=== PATIENT | female | born 1985 | race African-American/Black ===

== ENCOUNTER 2017-12-04 10:24 | Emergency (ER) | payer MEDICAID ==
[~2017-12-04] VITALS: Ht 154.9 cm; Wt 72.6 kg
[~2017-12-04 10:24] MED LIST: [UNRECOGNIZED DRUG - OTHER]
--- NOTE | 2017-12-04 10:45 | NUR ---
PRESENTS TO ER C/O ABD PAIN W/ N/V/D X 4 DAYS, NO EPISODE OF DIARRHEA TODAY. PATIENT IS A/OX 4. BREATHING EVEN AND UNLABORED. NO SOB, NAD, VITALS STABLE. SAFETY AND COMFORT MEASURES IN PLACE. AWAITING MD ORDERS.
--- NOTE | 2017-12-04 11:25 | NUR ---
NEW IV STARTED ON LAC, 20G, BLOOD DRAWN AND SENT TO LAB.
[2017-12-04 11:39] LABS: APPEARANCE,URINE Slightly Cloudy (CLEAR); BILIRUBIN,URINE Negative (NEGATIVE); BLOOD, URINE Trace-intact Ery/uL (NEGATIVE); COLOR,URINE Yellow (YELLOW); KETONES,URINE Trace (NEGATIVE); LEUKOCYTE ESTERASE ,URINE Trace (NEGATIVE); NITRITE, URINE Negative (NEGATIVE); PH,URINE 5.5 (5.0-8.0); PROTEIN,URINE Negative (NEGATIVE); UGLUCOSE Negative (NEGATIVE); UROBILINOGEN,URINE 0.2 EU/dL (0.2)
[2017-12-04] MEDS ORDERED: ONDANSETRON HCL/PF 4 MG/2 ML VIAL ONE (11:39)
[2017-12-04] MEDS ORDERED: FAMOTIDINE/PF INJ 20 MG/2 ML VIAL IV ONE ×2 (11:39→12:00)
[2017-12-04 11:45] LABS: BACTERIA,URINE Moderate /HPF (None Seen); RBC,URINE 0-2 /HPF (0-2); SQUAMOUS EPITHELIAL CELL,UR Many /HPF (None Seen)
[2017-12-04 11:49] LABS: BASOPHILS % (AUTO) 0.6 % (0.0-2.0); EOSINOPHILS % (AUTO) 2.2 % (0.0-6.0); HEMATOCRIT 43 % (33-45); HEMOGLOBIN 14.3 g/dL (11.5-14.8); LYMPHOCYTES # (AUTO) 3.6 /CMM (0.8-4.8); LYMPHOCYTES % (AUTO) 44.3 % (20.0-44.0); MEAN CORPUSCULAR HGB CONC 34 g/dl (31.0-36.0); MEAN CORPUSCULAR VOLUME 80 fL (82-100); MONOCYTES # (AUTO) 0.5 /CMM (0.1-1.30); MONOCYTES % (AUTO) 5.5 % (2.0-12.0); NEUTROPHILS # (AUTO) 3.9 /CMM (1.8-8.9); NEUTROPHILS % (AUTO) 47.4 % (43.0-81.0); PLATELET COUNT (AUTO) 266 /CMM (150-450); RDW COEFFICIENT OF VARIATION 12.1 (11.5-15.0); RED BLOOD CELL COUNT(AUTO) 5.36 MIL/uL (4.0-5.2); WHITE BLOOD COUNT (AUTO) 8.2 K/uL (4.3-11.0)
[2017-12-04 11:57] LABS: CALCIUM, SERUM 9.3 mg/dL (8.5-10.1); CREATININE 0.8 mg/dL (0.6-1.3); POTASSIUM 3.9 mmol/L (3.5-5.1)
[2017-12-04] MEDS ORDERED: IV NS 0.9% 1,000 ML BAG IV ONE (12:00)
[2017-12-04] MEDS ORDERED: ONDANSETRON HCL/PF - ER 4 MG/2 ML VIAL IV ONE (12:00)
[2017-12-04 12:03] LABS: ALBUMIN 3.6 g/dL (3.4-5.0); BILIRUBIN,DIRECT 0.2 mg/dL (0.0-0.2); BILIRUBIN,TOTAL 0.8 mg/dL (0.2-1.0); TOTAL PROTEIN, SERUM 7.9 g/dL (6.4-8.2)
--- NOTE | 2017-12-04 12:25 | NUR ---
WATER AND CRACKERS GIVEN TO PT FOR PO CHALLENGE PER MD ORDERS.
[2017-12-04 12:40] VITALS: BP 139/82
--- NOTE | 2017-12-04 12:50 | NUR ---
IV removed. Catheter intact and site benign. Pressure and 4x4 applied to site. No bleeding noted.Patient discharged to home in stable condition. Written and verbal after care instructions given. Patient verbalizes understanding of instruction.
== END 2017-12-04 12:52 | disposition home or self-care (01) ==
LOC: ER 10:27
DX: R11.2 Nausea with vomiting, unspecified (principal); F41.9 Anxiety disorder, unspecified; J45.909 Unspecified asthma, uncomplicated; G89.29 Other chronic pain; K21.9 Gastro-esophageal reflux disease without esophagitis; Z87.19 Personal history of other diseases of the digestive system; Z90.49 Acquired absence of other specified parts of digestive tract
CPT/HCPCS: 80048; 80076; 81001; 83690; 84703; 85025; 87086; 96361; 96374; 96375; 99284; A4606; J2405 ×2; J3490; J7030; Z7610; 36415; 81000-TC

== ENCOUNTER 2017-12-20 21:07 | Emergency (ER) | payer MEDICAID ==
[~2017-12-20] VITALS: Ht 154.9 cm; Wt 86.2 kg
[2017-12-20 22:19] VITALS: BP 140/86
== END 2017-12-20 23:12 | disposition home or self-care (01) ==
LOC: ER 21:19
DX: M25.551 Pain in right hip (principal); M79.671 Pain in right foot; G89.29 Other chronic pain; K21.9 Gastro-esophageal reflux disease without esophagitis; J45.909 Unspecified asthma, uncomplicated; Z90.89 Acquired absence of other organs; Z90.49 Acquired absence of other specified parts of digestive tract
CPT/HCPCS: 99282; A4606; Z7610

== ENCOUNTER 2018-03-06 11:10 | Emergency (ER) | payer MEDICAID, OTHER ==
[~2018-03-06] VITALS: Ht 154.9 cm; Wt 74.8 kg
[2018-03-06 11:10] VITALS: BP 120/86
--- NOTE | 2018-03-06 11:40 | NUR ---
BENADRYL 25MG AND PEPCID 20MG PO WERE GIVEN.
[2018-03-06] MEDS ORDERED: diphenhydrAMINE HCL 25 MG CAPSULE ONE (11:58)
[2018-03-06] MEDS ORDERED: FAMOTIDINE (20 MG) 20 MG TABLET ONE (11:58)
[2018-03-06] MEDS ORDERED: DIPHENHYDRAMINE HCL 12.5 MG/5 ML UDC PO ONE (12:00)
[2018-03-06] MEDS ORDERED: FAMOTIDINE (20 MG) 20 MG TABLET PO ONE (12:00)
== END 2018-03-06 12:12 | disposition home or self-care (01) ==
LOC: ER 11:11
DX: S60.562A Insect bite (nonvenomous) of left hand, initial encounter (principal); J45.909 Unspecified asthma, uncomplicated; K21.9 Gastro-esophageal reflux disease without esophagitis; G89.29 Other chronic pain; F41.9 Anxiety disorder, unspecified; Z90.49 Acquired absence of other specified parts of digestive tract; W57.XXXA Bitten or stung by nonvenomous insect and other nonvenomous arthropods, initial encounter; Y93.89 Activity, other specified; Y92.89 Other specified places as the place of occurrence of the external cause; Y99.8 Other external cause status
CPT/HCPCS: A4606; Q0163; Z7610

== ENCOUNTER 2019-04-27 07:35 | Emergency (ER) | payer SELFPAY ==
[~2019-04-27] VITALS: Ht 154.9 cm; Wt 86.2 kg
[2019-04-27 07:39] VITALS: BP 134/101
[2019-04-27] MEDS ORDERED: predniSONE 20 MG TABLET ONE (07:51)
[2019-04-27] MEDS ORDERED: IPRATROPIUM NEB FS 0.5 MG/2.5 ML AMPUL.NEB ONE ×2 (07:56→08:37)
[2019-04-27] MEDS ORDERED: ALBUTEROL FS 2.5 MG/3 ML VIAL.NEB ONE ×2 (07:56→08:37)
[2019-04-27] MEDS ORDERED: ALBUTEROL FS 2.5 MG/3 ML VIAL.NEB NEB ONE ×2 (08:00→08:30)
[2019-04-27] MEDS ORDERED: predniSONE 20 MG TABLET PO ONE (08:00)
[2019-04-27] MEDS ORDERED: IPRATROPIUM NEB FS 0.5 MG/2.5 ML AMPUL.NEB NEB ONE ×2 (08:00→08:30)
== END 2019-04-27 09:32 | disposition home or self-care (01) ==
LOC: ER 07:37
DX: J45.901 Unspecified asthma with (acute) exacerbation (principal); K21.9 Gastro-esophageal reflux disease without esophagitis; G89.29 Other chronic pain; F41.9 Anxiety disorder, unspecified; Z98.890 Other specified postprocedural states; Z90.49 Acquired absence of other specified parts of digestive tract
CPT/HCPCS: 93005; 94640 ×2; 99284; J7512

== ENCOUNTER 2019-06-25 05:59 | Emergency (ER) | payer MEDICAID ==
[~2019-06-25] VITALS: Ht 154.9 cm; Wt 81.6 kg
[2019-06-25] MEDS ORDERED: KETOROLAC TROMETHAMINE 15 MG/ML VIAL ONE (06:27)
[2019-06-25] MEDS ORDERED: ONDANSETRON HCL/PF 4 MG/2 ML VIAL ONE (06:28)
[2019-06-25] MEDS ORDERED: IV NS 0.9% 1,000 ML BAG IV ONE ×2 (06:30→08:00)
[2019-06-25] MEDS ORDERED: KETOROLAC TROMETHAMINE INJ 30 MG/ML VIAL IV ONE (06:30)
[2019-06-25] MEDS ORDERED: ONDANSETRON HCL/PF 4 MG/2 ML VIAL IVP ONE (06:30)
--- NOTE | 2019-06-25 06:48 | NUR ---
CLINTSELVinayak FROM WORK. TO ER BED 9. AAOX4. NO RESP DISTRESS NOTED, BREATHING EVEN AND UNLABORED. AMBULATORY. C/O FLU LIKE SYMPTOMS SINCE SUNDAY. PT REPORTS SHE FEELS WEAK, NAUSEOUS AND VOMMITED SEVERAL TIMES. PT STATES THAT SHE FEEL DEHAYDRATED. PT REPORTS COUGH, NOTED NON PRODUCTIVE COUGH. PT IS AFEBRILE. MD AT BEDSIDE FOR EVAL. ORDERS RECEIVED NIOTED AND CARIIRED OUT. IV LINE OBTAINED ON L HAND 20G.
--- NOTE | 2019-06-25 07:23 | NUR ---
RECEIVED REPORT FROM CRYSTAL ARZOLA FOR YANG, PT IS AAOX4, NOT IN RESPIRATORY DISTRESS, V/S STABLE, KEPT RESTE AND COMFORTABLE, WILL CONTINUE TO MONITOR.
--- NOTE | 2019-06-25 07:27 | NUR ---
PT ENDORSED TO CRYSTAL OVALLE FOR YANG.
[2019-06-25] MEDS ORDERED: DICYCLOMINE HCL 10 MG CAPSULE PO ONE ×2 (08:00)
[2019-06-25 08:56] VITALS: BP 148/82
--- NOTE | 2019-06-25 08:57 | NUR ---
IV removed. Catheter intact and site benign. Pressure and 4x4 applied to site. No bleeding noted. Patient discharged to home in stable condition. Written and verbal after care instructions given. Patient verbalizes understanding of instruction.
== END 2019-06-25 08:57 | disposition home or self-care (01) ==
LOC: ER 06:03
DX: B34.9 Viral infection, unspecified (principal); J45.909 Unspecified asthma, uncomplicated; R19.7 Diarrhea, unspecified; K21.9 Gastro-esophageal reflux disease without esophagitis; F41.9 Anxiety disorder, unspecified; G89.29 Other chronic pain; Z90.49 Acquired absence of other specified parts of digestive tract; Z98.890 Other specified postprocedural states; Z88.5 Allergy status to narcotic agent; Z88.6 Allergy status to analgesic agent
CPT/HCPCS: 84703; 96361; 96374; 96375; 99283; J1885; J2405; J7030 ×2

== ENCOUNTER 2019-07-28 11:42 | Emergency (ER) | payer MEDICAID, OTHER ==
[~2019-07-28] VITALS: Ht 154.9 cm; Wt 86.2 kg
--- NOTE | 2019-07-28 11:51 | NUR ---
PT CAME INTO THE ED C/O R SHOULDER PAIN 06/26 X 5 DAYS. PT AAOX4, VSS, BREATHING EVEN AND UNLABORED ON ROOM AIR. PT CONNECTED TO THE MONITOR.
--- NOTE | 2019-07-28 12:14 | NUR ---
XRAY AT BEDSIDE
[2019-07-28 12:36] VITALS: BP 127/84
== END 2019-07-28 12:37 | disposition home or self-care (01) ==
LOC: ER 11:46
DX: M25.511 Pain in right shoulder (principal); J45.909 Unspecified asthma, uncomplicated; K21.9 Gastro-esophageal reflux disease without esophagitis; F41.9 Anxiety disorder, unspecified; M79.671 Pain in right foot; G89.29 Other chronic pain; Z90.49 Acquired absence of other specified parts of digestive tract; Z98.890 Other specified postprocedural states; Z88.5 Allergy status to narcotic agent
CPT/HCPCS: 73030-TC

== ENCOUNTER 2020-09-15 00:20 | Emergency (ER) | payer OTHER ==
[~2020-09-15] VITALS: Ht 154.9 cm; Wt 88.5 kg
--- NOTE | 2020-09-15 00:38 | NUR ---
PT PRESENTS TO THE ED C/O OF LOWER ABD PAIN AND N/V ALONG WITH FEVER AND CHILLS X3 DAYS. PT IS A&OX4 BREATHING EVENLY AND UNLABORED. PT APPEARS TEARFUL AND HAS BOUTS VOMITING. SKIN IS WARM, DRY, AND INTACT. PT IS ATTACHED TO THE MONITOR AND POX. PT GIVEN A BLANKET AND CALL LIGHT WITHIN REACH. WILL CONTINUE TO MONITOR.
--- NOTE | 2020-09-15 00:49 | NUR ---
URINE COLLECTED SENT TO LAB
[2020-09-15] MEDS ORDERED: ONDANSETRON HCL/PF 4 MG/2 ML VIAL ONE (01:17)
[2020-09-15] MEDS ORDERED: PANTOPRAZOLE 40 MG VIAL ONE (01:17)
[2020-09-15] MEDS ORDERED: MORPHINE SULFATE INJ 4 MG/ML DISP.SYRIN ONE (01:18)
[2020-09-15] MEDS ORDERED: MAG HYDROX/AL HYDROX/SIMETH 30 ML UDC ONE (01:20)
[2020-09-15] MEDS ORDERED: LIDOCAINE VISCOUS 2% UD 15 ML UDC ONE (01:20)
[2020-09-15 01:21] LABS: BILIRUBIN,URINE NEGATIVE (NEGATIVE); COLOR,URINE YELLOW (YELLOW); LEUKOCYTE ESTERASE ,URINE NEGATIVE (NEGATIVE); NITRITE, URINE NEGATIVE (NEGATIVE); PROTEIN,URINE NEGATIVE (NEGATIVE); UGLUCOSE NEGATIVE (NEGATIVE); UROBILINOGEN,URINE 0.2 EU/dL (0.2)
[2020-09-15 01:26] LABS: BACTERIA,URINE Few /HPF (None Seen); BASOPHILS # (AUTO) 0.1 /CMM (0.0-0.2); BASOPHILS % (AUTO) 0.6 % (0.0-2.0); EOSINOPHILS % (AUTO) 1.5 % (0.0-6.0); HEMATOCRIT 43 % (33-45); HEMOGLOBIN 14.1 g/dL (11.5-14.8); LYMPHOCYTES # (AUTO) 4.1 /CMM (0.8-4.8); LYMPHOCYTES % (AUTO) 36.4 % (20.0-44.0); MEAN CORPUSCULAR HGB CONC 33 g/dl (31.0-36.0); MEAN CORPUSCULAR VOLUME 83 fL (82-100); MONOCYTES # (AUTO) 0.7 /CMM (0.1-1.30); MONOCYTES % (AUTO) 6.5 % (2.0-12.0); NEUTROPHILS # (AUTO) 6.3 /CMM (1.8-8.9); PLATELET COUNT (AUTO) 297 /CMM (150-450); RED BLOOD CELL COUNT(AUTO) 5.23 MIL/uL (4.0-5.2); SQUAMOUS EPITHELIAL CELL,UR Few /HPF (None Seen); WHITE BLOOD COUNT (AUTO) 11.4 K/uL (4.3-11.0)
[2020-09-15 01:27] LABS: CALCIUM, SERUM 8.9 mg/dL (8.5-10.1); CREATININE 0.9 mg/dL (0.6-1.3); POTASSIUM 3.6 mmol/L (3.5-5.1); RBC,URINE 0-2 /HPF (0-2)
[2020-09-15] MEDS ORDERED: IV NS 0.9% 1,000 ML BAG IV ONE (01:30)
[2020-09-15] MEDS ORDERED: MORPHINE SULFATE INJ 2 MG/ML DISP.SYRIN IV ONE (01:30)
[2020-09-15] MEDS ORDERED: PANTOPRAZOLE 40 MG VIAL IV ONE (01:30)
[2020-09-15] MEDS ORDERED: ONDANSETRON HCL/PF 4 MG/2 ML VIAL IVP ONE (01:30)
[2020-09-15] MEDS ORDERED: MAG HYDROX/AL HYDROX/SIMETH 30 ML UDC PO ONE (01:30)
[2020-09-15] MEDS ORDERED: LIDOCAINE VISCOUS 2% UD 15 ML UDC MM ONE (01:30)
[2020-09-15 01:32] LABS: ALBUMIN 3.6 g/dL (3.4-5.0); BILIRUBIN,DIRECT 0.1 mg/dL (0.0-0.2); BILIRUBIN,TOTAL 0.6 mg/dL (0.2-1.0); TOTAL PROTEIN, SERUM 7.8 g/dL (6.4-8.2)
[2020-09-15] MEDS ORDERED: METOCLOPRAMIDE HCL 10 MG/2 ML VIAL ONE (02:47)
[2020-09-15] MEDS ORDERED: METOCLOPRAMIDE HCL 10 MG/2 ML VIAL IV ONE (03:00)
--- NOTE | 2020-09-15 03:50 | NUR ---
Patient discharged to home in stable condition. Written and verbal after care instructions given. Patient verbalizes understanding of instruction. IV removed. Catheter intact and site benign. Pressure and 4x4 applied to site. No bleeding noted.Pt ambulatory with a steady gait.
[2020-09-15 04:06] VITALS: BP 112/70
== END 2020-09-15 03:55 | disposition home or self-care (01) ==
LOC: ER 00:23
DX: K29.70 Gastritis, unspecified, without bleeding (principal); J45.909 Unspecified asthma, uncomplicated; K21.9 Gastro-esophageal reflux disease without esophagitis; F41.9 Anxiety disorder, unspecified; Z98.890 Other specified postprocedural states; Z90.49 Acquired absence of other specified parts of digestive tract; Z88.5 Allergy status to narcotic agent
CPT/HCPCS: 36415; 80048; 80076; 81001; 83690; 84703; 85025; 87086; 96361; 96374; 96375; 99285; C9113; J2405; J2765; J7030; J2270

== ENCOUNTER → 2020-12-24 | Emergency (ER) | payer OTHER ==
[~2020-12-24] VITALS: Ht 154.9 cm; Wt 97.5 kg
[~2020-12-24] MED LIST changes: +KETOROLAC TROMETHAMINE INJ 30 MG/ML VIAL IM ONE; +SULF1TAB48 PO
[2020-12-24 09:32] VITALS: BP 130/91
== END | disposition home or self-care (01) ==
LOC: ER 15:55
DX: L03.115 Cellulitis of right lower limb (principal); J45.909 Unspecified asthma, uncomplicated; K21.9 Gastro-esophageal reflux disease without esophagitis; F41.9 Anxiety disorder, unspecified; Z90.49 Acquired absence of other specified parts of digestive tract; Z88.5 Allergy status to narcotic agent; Z98.890 Other specified postprocedural states; Z79.899 Other long term (current) drug therapy

== ENCOUNTER 2021-01-14 21:41 | Emergency (ER) | payer OTHER ==
[~2021-01-14] VITALS: Ht 154.9 cm; Wt 86.2 kg
[~2021-01-14 21:41] MED LIST changes: -KETOROLAC TROMETHAMINE INJ 30 MG/ML VIAL IM ONE
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
[2021-01-14] MEDS ORDERED: ACETAMINOPHEN 325 MG TABLET ONE (22:12)
[2021-01-14] MEDS ORDERED: ONDANSETRON 4 MG TAB.RAPDIS ONE (22:13)
--- NOTE | 2021-01-14 22:13 | NUR ---
TAKEN TO CT
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
--- NOTE | 2021-01-14 22:27 | NUR ---
RETURNED FROM CT
[2021-01-14] MEDS ORDERED: ACETAMINOPHEN 325 MG TABLET PO ONE (22:30)
[2021-01-14] MEDS ORDERED: ONDANSETRON 4 MG TAB.RAPDIS SL ONE (22:30)
--- NOTE | 2021-01-14 22:41 | NUR ---
[employer] AT BEDSIDE
--- NOTE | 2021-01-14 23:06 | NUR ---
Patient discharged to home in stable condition. Written and verbal after care instructions given. Patient verbalizes understanding of instruction.Pt ambulatory with a steady gait
[2021-01-14 23:14] VITALS: BP 130/90
== END 2021-01-14 23:06 | disposition home or self-care (01) ==
LOC: ER 21:41
DX: S00.83XA Contusion of other part of head, initial encounter (principal); S90.121A Contusion of right lesser toe(s) without damage to nail, initial encounter; R51.9 Headache, unspecified; J45.909 Unspecified asthma, uncomplicated; K21.9 Gastro-esophageal reflux disease without esophagitis; F41.9 Anxiety disorder, unspecified; Z90.49 Acquired absence of other specified parts of digestive tract; Z98.890 Other specified postprocedural states; Z88.5 Allergy status to narcotic agent; Z79.899 Other long term (current) drug therapy; Y04.8XXA Assault by other bodily force, initial encounter; Y93.89 Activity, other specified; Y92.89 Other specified places as the place of occurrence of the external cause; Y99.8 Other external cause status
CPT/HCPCS: 70450; 70486; 72125; 73630; 99285; Q0162

== ENCOUNTER 2021-01-18 16:27 | Emergency (ER) | payer OTHER ==
[~2021-01-18] VITALS: Ht 154.9 cm; Wt 107.0 kg
--- NOTE | 2021-01-18 16:40 | NUR ---
The patient is bibs for c/o dizziness x 2 days, states "i fainted earlier at work an hour ago." Denies pain at this time. In room air and denies SOB. Respiration regular and unlabored. Will continue to monitor the patient.
[2021-01-18] MEDS ORDERED: ACETAMINOPHEN ES 500 MG TABLET ONE (16:56)
[2021-01-18] MEDS ORDERED: IBUPROFEN 400 MG TABLET ONE (16:56)
[2021-01-18] MEDS ORDERED: IBUPROFEN 400 MG TABLET PO ONE (17:00)
[2021-01-18] MEDS ORDERED: ACETAMINOPHEN ES 500 MG TABLET PO ONE (17:00)
--- NOTE | 2021-01-18 17:00 | NUR ---
THE PATIENT C/O HEADACHE 01/24. ORDERED MOTRIN 800 MG PO AND TYLENOL 1000 MG PO GIVEN. WILL CONTINUE TO MONITOR THE PATIENT.
[2021-01-18] MEDS ORDERED: ONDANSETRON 4 MG TAB.RAPDIS ONE (17:07)
--- NOTE | 2021-01-18 17:10 | NUR ---
zofran 4 mg po x [address] Garcia. Noted and carried out.
[2021-01-18] MEDS ORDERED: IV NS 0.9% 1,000 ML BAG IV ONE (17:30)
[2021-01-18] MEDS ORDERED: ONDANSETRON HCL 4 MG/5 ML SOLUTION PO ONE (17:30)
[2021-01-18] MEDS ORDERED: ONDANSETRON 4 MG TAB.RAPDIS PO ONE (17:30)
[2021-01-18] MEDS ORDERED: ONDANSETRON HCL/PF 4 MG/2 ML VIAL IVP ONE (17:30)
--- NOTE | 2021-01-18 17:30 | NUR ---
ZOFRAN 4 MG ORDERED 1730 NOT GIVEN BECAUSE IT IS DUPLICATE ORDER.
[2021-01-18 17:34] LABS: BASOPHILS % (AUTO) 0.3 % (0.0-2.0); EOSINOPHILS % (AUTO) 1.7 % (0.0-6.0); HEMATOCRIT 43 % (33-45); HEMOGLOBIN 14.1 g/dL (11.5-14.8); LYMPHOCYTES # (AUTO) 4.3 /CMM (0.8-4.8); LYMPHOCYTES % (AUTO) 41.5 % (20.0-44.0); MEAN CORPUSCULAR HGB CONC 33 g/dl (31.0-36.0); MEAN CORPUSCULAR VOLUME 82 fL (82-100); MONOCYTES # (AUTO) 0.7 /CMM (0.1-1.30); MONOCYTES % (AUTO) 6.7 % (2.0-12.0); NEUTROPHILS # (AUTO) 5.1 /CMM (1.8-8.9); NEUTROPHILS % (AUTO) 49.8 % (43.0-81.0); PLATELET COUNT (AUTO) 346 /CMM (150-450); RED BLOOD CELL COUNT(AUTO) 5.24 MIL/uL (4.0-5.2); WHITE BLOOD COUNT (AUTO) 10.3 K/uL (4.3-11.0)
[2021-01-18 17:58] VITALS: BP 131/72
--- NOTE | 2021-01-18 17:58 | NUR ---
Patient discharged to home in stable condition. Written and verbal after care instructions given. Patient verbalizes understanding of instruction. The patient left ER in stable condition.
== END 2021-01-18 17:59 | disposition home or self-care (01) ==
LOC: ER 16:27
DX: R55 Syncope and collapse (principal); J45.909 Unspecified asthma, uncomplicated; K21.9 Gastro-esophageal reflux disease without esophagitis; F41.9 Anxiety disorder, unspecified; Z90.49 Acquired absence of other specified parts of digestive tract; Z98.890 Other specified postprocedural states; Z88.5 Allergy status to narcotic agent; Z79.899 Other long term (current) drug therapy
CPT/HCPCS: 36415; 85025; 93005; 99284; Q0162

== ENCOUNTER 2021-01-27 14:30 | Emergency (ER) | payer OTHER ==
[~2021-01-27] VITALS: Ht 154.9 cm; Wt 86.6 kg
--- NOTE | 2021-01-27 14:55 | NUR ---
ANXIETY ATTACK -TO ER FOR EVALUATION
[2021-01-27] MEDS ORDERED: ALPR0.5T PO (15:14)
[2021-01-27] MEDS ORDERED: ALPRAZOLAM 0.5 MG TABLET ONE (15:15)
--- NOTE | 2021-01-27 15:21 | NUR ---
Patient discharged to home in stable condition. Written and verbal after care instructions given. Patient verbalizes understanding of instruction. Pt ambulatory with a steady gait
[2021-01-27 15:22] VITALS: BP 133/72
[2021-01-27] MEDS ORDERED: ALPRAZOLAM 0.5 MG TABLET PO ONE (15:30)
== END 2021-01-27 15:23 | disposition home or self-care (01) ==
LOC: ER 14:33
DX: F41.9 Anxiety disorder, unspecified (principal); J45.909 Unspecified asthma, uncomplicated; K21.9 Gastro-esophageal reflux disease without esophagitis; G89.29 Other chronic pain; Z98.890 Other specified postprocedural states; Z90.49 Acquired absence of other specified parts of digestive tract

== ENCOUNTER 2022-05-15 14:36 | Emergency (ER) | payer OTHER ==
[~2022-05-15] VITALS: Ht 154.9 cm; Wt 907.2 kg
[~2022-05-15 14:36] MED LIST changes: +ALPR0.5T PO
[2022-05-15] MEDS ORDERED: ASPIRIN 81 MG TAB.CHEW PO ONE (17:30)
[2022-05-15 18:06] VITALS: BP 122/71
--- NOTE | 2022-05-15 18:07 | NUR ---
Patient does not wish to proceed with medical care recommended by Shamika Leger. Patient given information related to possible complications, up to and including , which could occur as a result of leaving the hospital at this time. Patient verbalizes understanding of risks involved due to leaving against medical advice. Patient has signed AMA form.
== END 2022-05-15 18:07 | disposition left against medical advice (07) ==
LOC: ER 14:38
DX: R07.89 Other chest pain (principal); F41.9 Anxiety disorder, unspecified; J45.909 Unspecified asthma, uncomplicated; K21.9 Gastro-esophageal reflux disease without esophagitis; Z90.49 Acquired absence of other specified parts of digestive tract; Z98.890 Other specified postprocedural states; Z79.899 Other long term (current) drug therapy